=== PATIENT | female | born 1945 | race Caucasian/White ===

== ENCOUNTER 2017-03-01 07:58 | Day surgery (SDC) | payer MEDICARE, OTHER ==
[2017-03-01] VITALS (8 sets, daily range): BP systolic 95–112; BP diastolic 57–74; PULSE 59–86; RESP 11–18; O2SAT 92–100
[~2017-03-01] VITALS: Ht 157.5 cm; Wt 63.4 kg
[~2017-03-01 07:58] MED LIST: ACET1TAB12 PO; ALPR0.5T8 PO; EPIN0.3P2 IJ; GABA-500 PO; HYDR25TA4 PO; IBUP200C PO; KEN25CR EXT; LEVO50CA2 PO; LIOT5TAB3 PO; Lactated Ringer's 1,000 ML IV ONE; TRAM50TA2 PO; Vancomycin Inj 1,000 MG in IV Premix 1 EACH IV ONE
[2017-03-01] MEDS ORDERED: Ondansetron 2 mg/mL 2 mL Inj ONE (07:59)
[2017-03-01] MEDS ORDERED: Dexamethasone 4 mg/mL Inj ONE (07:59)
[2017-03-01] MEDS ORDERED: fentaNYL-PF 50 mCg/mL 2 mL Inj ONE (07:59)
[2017-03-01] MEDS ORDERED: Propofol 10,000 mCg/mL 20 mL Inj ONE (07:59)
[2017-03-01] MEDS ORDERED: Bupivacaine Liposome 1.3% 20 mL Inj ONE (09:41)
[2017-03-01] MEDS ORDERED: Bupivacaine-MPF 0.25%/EPI 30 mL Inj INJ ONE (10:05)
[2017-03-01] MEDS ORDERED: Bupivacaine Liposome 1.3% 20 mL Inj INFILTRATE ONE (10:05)
[2017-03-01] MEDS ORDERED: Gentamicin 40 mg/mL 2 mL Inj IRRIGATION ONE (10:05)
[2017-03-01] MEDS ORDERED: Lactated Ringer's 500 ML IV PRN (10:12)
[2017-03-01] MEDS ORDERED: Lactated Ringer's 1,000 ML IV SCH (10:12)
--- NOTE | 2017-03-01 10:12 | PCM.HPANE ---
Patient Data Surgeon Admitting Provider: Attending Provider:Alexy Mcdonald MD Primary Care Physician:Minerva Navarro Other Provider:Trever Pena Anesthesia Reason for Visit Left Knee Arthritis Ht/WT & BMI Height (Feet): 5 Height (Inches): 1 Weight (Kilograms): 65.40 Body Mass Index 27.00 Allergies Coded Allergies: Penicillins (Verified Allergy, Unknown, FACIAL BLISTERS,SWELLING,RESP DISTRESS, 02/23/17) iodine (Verified Allergy, Unknown, contrast media IV - topical ok, 02/23/17 ) Uncoded Allergies: SHELLFISH (Allergy, Unknown, can tolerate only if fresh-, 02/23/17) Past Anesthesia History Anesthesia History: Positive for:: Anesthesia Reactions (nausea/vomiting), Denies:: Abnormal Airway, Difficult Intubation, Fam Anesthesia Reaction, Fam Malignant Hypertherm, Malignant Hyperthermia Diabetes History Hx Diabetes?: No MRSA MRSA: No Medications Hypertension Medication: Yes Home Meds Incl Beta Adam: No Reported Medications Triamcinolone Acet (Triamcinolone Acetonide Cream)1 Applic/0.25 Gm Cr1 Applic EXT BID #60 GM Ref 0 02/22/17 Tramadol 50 Mg [id number] Mg PO Q4H PRN For Pain Ref 0 02/22/17 Levothyroxine (Tirosint)50 Mcg [id number] Mcg PO DAILY 02/22/17 Liothyronine Sodium 5 Mcg Tablet5 Mcg PO DAILY #30 TABLET 02/22/17 Ibuprofen 200 Mg Capsule1,200 Mg PO DAILY PRN For Pain Ref 0 02/22/17 Hydrochlorothiazide 25 Mg [id number] Mg PO DAILY 30 Days Ref 0 02/22/17 Gabapentin 100 Mg [id number] Mg PO DAILY 30 Days Ref 0 02/22/17 Epinephrine (Epipen 2-Mk)0.3 Mg/0.3 Ml Auto.injct0.3 Mg IJ PRN For Anaphyllaxis 02/22/17 Alprazolam 0.5 Mg Tablet0.5 Mg PO TID PRN For Anxiety Ref 0 02/22/17 Acetaminophen/Codeine 300-30mg (Tylenol/Codeine #3)1 Each Tablet1-2 Tablet PO HS PRN Pain Ref 0 02/22/17 History History of ENT Problems?: No HEENT History: Denies:: Abnormal Airway Difficult Intubation Dysphagia Hearing Problem Sinus Problem TMJ Denture Type: None Teeth Condition: Within Normal Limits Hx of Heart Problems?: Yes Cardiovascular History: Positive for:: Hypertension Denies:: AICD Abdominal Aortic Aneurism Cardiac Surgery Heart Murmur Irregular Heartbeat Pacemaker Peripheral Vascular Rheumatic Fever Thrombophlebitis Other Cardiac History: > 4 METS Hx of Respiratory Problem?: No Respiratory History: Denies:: Asthma COPD Emphysema Oxygen Administration Pneumonia Tuberculosis Use of C-PAP Machine Use of Inhalers / NEBS Hx Neurologic Problems?: No Neurological History: Denies:: CVA Dementia Headaches Multiple Sclerosis Parkinson's Disease Seizures TIA Hx of GI Problems?: No Hx of Problems?: Yes Genitourinary History: Denies:: Kidney Stones Other Pertinent History: hx of partial right nephrectomy for suspected renal ca Female Hx: Denies:: Currently (hysterectomy) Problems with Breasts? Skin History: Denies:: History Skin Disorders? Pressure Ulcers Hx Musculoskeletal Problems?: Yes Musculoskeletal History: Positive for:: Degenerative Joint Osteoarthritis Denies:: Back Injury Fibromyalgia Myasthenia Gravis Systemic Lupus Hx of Psycho/Social Problems?: No Psycho Social History: Denies:: Anxiety Hx Depression Hx Surgeries?: Yes (jerome/bso, A+P repair, partial right nephrectomy) Hx Any Other Health Problems?: Yes Other History: Positive for:: Cancer (suspected renal ca) Thyroid Disease History Blood Transfusions: Positive for:: Accept Blood Products? Denies:: Blood Transfusions Hx Diabetes: No Hx Alcohol Use: YesAlcoholic Drinks Per Day: one glass wine weeklyHx Substance Use: NoHave You Smoked inLast 12 mo: No Stop/Bang S-Snoring: Do You Snore Loudly: No T-Tired: feel tired, fatigued: No O-Obsered: Observed not breath: No P-Blood Pressure: treated: Yes B- Body Mass Index > 35 kg/m2: No A- Age over 50: Yes N- Neck Large Circumference: No G- Gender Male: No NAYELI Total Score: 2 NAYELI Risk Assessment: Low Risk, <3 Yes Risk Assessment Category Category 1A: Patient has history of documented sleep apnea, and HAS NOT received any narcotic, sedative or anesthesia administration during this stay. Category 1B: Patient has history of documented sleep apnea, and HAS received any narcotic , sedative or anesthesia administration during this stay Category 2: Patient has SUSPECTED Obstructive Sleep Apnea, and HAS received any narcotic , sedative or anesthesia administration during this stay. Category 3: Patient has SUSPECTED Obstructive Sleep Apnea and HAS NOT received narcotic, sedative or anesthesia administration during this stay. Category 4: Outpatient in Procedural Areas with known sleep apnea or who screen positive for High Risk via the STOP/BANG questionnaire. Exam Exam General Appearance: Alert, Oriented X3, Cooperative, No Acute Distress HEENT/AIRWAY: MP 2 Lungs: Clear to Auscultation, Normal Air Movement Heart: Exam Unremarkable, Regular Rate/Rhythm, No Murmurs/Rubs/Gallops Meds/Labs/Diagnostics Admission Meds Current Medications Lactated Ringer's (Lr) 1,000 ml @ 120 mls/hr Q8H20M ONCE IV Last administered on 03/01/17t 08:18; Start 03/01/17 at 05:00; Stop 03/01/17 at 13:19 Plan Impression Patient chart reviewed, patient interviewed and anesthestic plan with risks, benefits, and alternatives discussed, and informed consent obtained. NPO per Anesth. Guidelines: Yes ASA Physical Status: ASA2 Mod Systemic Disease Anesthetic Plan: GA Bene/Risks/Altern/Consents: Yes HP Complete Prior to Induction: Yes Naif Andersen MD Mar 01, 2017 08:22
[2017-03-01] MEDS ORDERED: Labetalol 5 mg/mL 4 mL Inj IV PRN (10:15)
[2017-03-01] MEDS ORDERED: Atropine 0.4 mg/mL Inj IVPUSH PRN (10:15)
[2017-03-01] MEDS ORDERED: Ondansetron 2 mg/mL 2 mL Inj IVPUSH PRN (10:15)
[2017-03-01] MEDS ORDERED: EPHEDrine Sulfate 50 mg/mL Inj IVPUSH PRN (10:15)
[2017-03-01] MEDS ORDERED: HYDROmorphone 1 mg/mL Inj IVPUSH PRN (10:15)
[2017-03-01] MEDS ORDERED: MetoCLOpramide 5 mg/mL 2 mL Inj IVPUSH PRN (10:15)
[2017-03-01] MEDS ORDERED: fentaNYL-PF 50 mCg/mL 2 mL Inj IVPUSH PRN (10:15)
[2017-03-01] MEDS ORDERED: Phenylephrine 10,000 mCg/mL Inj IVPUSH PRN (10:15)
[2017-03-01] MEDS ORDERED: oxyCODONE-Acetamin 5-325 mg Tablet PO PRN (11:00)
[2017-03-01] MEDS ORDERED: Ketorolac 15 mg/mL Inj IVPUSH ONE (11:00)
--- NOTE | 2017-03-01 11:45 | PCM.ANEP1 ---
Post Anesthesia PACU Phase 1 Assessment Vital Signs Vital Signs Date Time Temp Pulse Resp B/P Pulse Ox O2 Delivery O2 Flow Rate FiO2 03/01/17 11:39 36.3 79 18 104/57 98 Room Air 03/01/17 11:30 77 13 110/74 96 Room Air 03/01/17 11:25 75 14 97/61 98 Room Air 03/01/17 11:19 79 15 112/58 100 Simple Mask 8 03/01/17 11:15 36.1 75 11 109/65 100 Simple Mask 8 03/01/17 08:42 36.3 59 18 103/73 96 Room Air Anesthetic Administered: GA Level of Alertness: Awake, talking VANEGAS's with Equal Strength: Yes Pain: No Nausea or Vomiting: No CV Function & Hydration Stable: Yes Airway Device: Oxygen Delivery: Simple Mask Lungs: Clear to Auscultation, Normal Air Movement PACU Phase 2 Assessment Complications: No Follow up Care: N/A Patient Instructions Provided: N/A Naif Andersen MD Mar 01, 2017 11:45
--- NOTE | 2017-03-01 11:55 | DRSVH ---
PROCEDURE: X-RAY LEFT KNEE, ONE OR TWO VIEWS ([id number]) INDICATIONS: POST PROTHESIS ALIGNMENT TECHNIQUE: 2 views of of the knee acquired. COMPARISON: [facility], , XR KNEE BILATERAL STANDING UP, 06/17/2016, 9:57. FINDINGS: Bones: Patient is status post left medial unicompartmental arthroplasty. Hardware components are in expected positions with near-anatomic alignment. Visualized bony structures are intact. Soft tissues: Overlying postoperative changes are noted including a surgical drain. IMPRESSION: 1. Expected postsurgical change status post medial unicompartmental arthroplasty. Dictated by: Jhonatan Luna M.D. on 03/01/2017 at 11:51 Approved by: Jhonatan Luna M.D. on 03/01/2017 at 11:53
[2017-03-01] MEDS ORDERED: hydrOXYzine Pamoate 25 mg Capsule ONE (12:02)
--- NOTE | 2017-03-02 07:00 | OP ---
[address] [address] OPERATIVE REPORT PATIENT: SUSHIL VO : 1945 MR#: [id number] ADMIT: 03/01/2017 JOB ID: [id number] DATE OF SURGERY: 03/01/2017 PREOPERATIVE DIAGNOSIS(ES): Medial compartment osteoarthritis, left knee. POSTOPERATIVE DIAGNOSIS(ES): Medial compartment osteoarthritis, left knee. PROCEDURE: Unicompartmental knee arthroplasty, left knee. SURGEON: Alexy Mcdonald MD. INSECTICIDE EXPERT: Florentin Palomino PA-C. Flare Breaker required due to the complexity of the operation. COMPLICATIONS: None. FINDINGS AT SURGERY: Revealed advanced [id number] arthritis of the medial compartment. Lateral compartment as visualized showed no evidence of osteoarthritis nor did the patellar surface. She had an intact ACL noted at the time of surgery. DESCRIPTION OF OPERATION: The patient was prepped and draped in usual sterile fashion. An anteromedial approach was made. Dissection carried down. Alignment tibial guide was assembled and a standard tibial cut of 4 mm of bone fragment was removed. Spacer block was placed, a 9 mm block. Utilized distal femoral cut was made and bone fragment removed. The femur was sized to a 4 chamfer cutting block, fixed in appropriate position of rotation and drill holes and chamfer cuts were made. The tibia was sized to a C fixed in appropriate position of rotation and drill stabilization holes were made. The tibia was subsequently treated with a 10 mm polyethylene. Excellent fixation, alignment was obtained. The poly was snapped securely into place. Tourniquet let down. Hemostasis achieved. Deep closure with #2 Quill deep followed by 2-0 Vicryl, 3-0, and a 4-0 intracuticular stitch. Steri-Strips were applied. She tolerated the procedure well. Standard postoperative course.
== END 2017-03-01 23:59 | disposition home or self-care (01) ==
LOC: SAS 07:58
PROVIDERS: ATTEND Orthopaedic Surgery
DX: M17.12 Unilateral primary osteoarthritis, left knee (principal); I10 Essential (primary) hypertension; Z90.710 Acquired absence of both cervix and uterus; Z90.5 Acquired absence of kidney
CPT/HCPCS: 27446; 73560; C1713; C1776; J0690; J1100; J1170; J1580; J1885; J2405; J3010; J3370; J7120; Q0177